=== PATIENT | female | born 1945 | race Two or more races ===

== ENCOUNTER 2017-12-20 10:03 | Outpatient (CLI) | payer OTHER ==
[~2017-12-20 10:03] MED LIST: COLAGENO; NABUMETONE500 MG PO; PERCOCET 5/3251 TAB PO; VIT B; [UNRECOGNIZED DRUG - OTHER]; [UNRECOGNIZED DRUG - OTHER]
== END 2017-12-20 10:07 | disposition home or self-care (01) ==
LOC: MAMO-SONO 10:03
DX: N60.12 Diffuse cystic mastopathy of left breast (principal)

== ENCOUNTER 2017-12-26 09:30 | Inpatient (IN) | payer OTHER ==
[~2017-12-26] VITALS: Ht 162.6 cm; Wt 77.1 kg
[2018-01-03] MEDS ORDERED: VITAMIN B-1250 MCG PO (14:56)
[2018-01-03] MEDS ORDERED: VITAMIN C100 MG PO (14:57)
[2018-01-03] MEDS ORDERED: CALCIUM 500 +1 EAC2 PO (14:58)
== END 2018-01-05 13:04 | DRG 470 ==
LOC: EDSTATUS 09:30 → O/R 01-02 06:00 → SURG 01-02 06:00 → O/R 01-02 09:30 → SURG 01-02 14:33
PROVIDERS: Orthopaedic Surgery
PROC: 0SRC0J9 Replacement of Right Knee Joint with Synthetic Substitute, Cemented, Open Approach (ICD-10-PCS; principal; 2018-01-02 09:45)
DX: M17.11 Unilateral primary osteoarthritis, right knee (principal); D62 Acute posthemorrhagic anemia; I10 Essential (primary) hypertension

== ENCOUNTER → 2018-04-02 | Outpatient (CLI) | payer OTHER ==
[~2018-04-02] MED LIST changes: +CALCIUM 500 +1 EAC2 PO; +VITAMIN B-1250 MCG PO; +VITAMIN C100 MG PO
== END | disposition home or self-care (01) ==
LOC: RAD 11:00
DX: M25.562 Pain in left knee (principal); M17.0 Bilateral primary osteoarthritis of knee; M25.561 Pain in right knee

== ENCOUNTER → 2018-07-11 09:34 | Outpatient (CLI) | payer OTHER | END | disposition home or self-care (01) | LOC: LAB 09:34 | DX: I10 Essential (primary) hypertension (principal); E11.9 Type 2 diabetes mellitus without complications; E03.8 Other specified hypothyroidism; E78.2 Mixed hyperlipidemia; M81.0 Age-related osteoporosis without current pathological fracture ==

== ENCOUNTER 2018-12-24 09:42 | Outpatient (CLI) | payer OTHER | END 2018-12-24 11:07 | disposition home or self-care (01) | LOC: MAMO-SONO 09:42 | DX: Z12.31 Encounter for screening mammogram for malignant neoplasm of breast (principal); Z87.898 Personal history of other specified conditions; N60.12 Diffuse cystic mastopathy of left breast; N60.11 Diffuse cystic mastopathy of right breast ==

== ENCOUNTER 2018-12-28 11:11 | Outpatient (CLI) | payer OTHER | END 2018-12-28 11:22 | disposition home or self-care (01) | LOC: SONOGRAMA 11:11 | DX: D24.1 Benign neoplasm of right breast (principal) ==

== ENCOUNTER 2019-02-21 09:37 | Outpatient (CLI) | payer OTHER | END 2019-02-21 12:01 | disposition home or self-care (01) | LOC: LAB 09:37 | DX: E11.9 Type 2 diabetes mellitus without complications (principal); E03.8 Other specified hypothyroidism; E78.2 Mixed hyperlipidemia; K92.1 Melena; D64.0 Hereditary sideroblastic anemia; M81.0 Age-related osteoporosis without current pathological fracture; I10 Essential (primary) hypertension ==

== ENCOUNTER 2019-02-22 09:44 | Outpatient (CLI) | payer OTHER | END 2019-02-22 09:50 | disposition home or self-care (01) | LOC: LAB 09:44 | DX: E03.8 Other specified hypothyroidism (principal); D64.0 Hereditary sideroblastic anemia; M81.0 Age-related osteoporosis without current pathological fracture; I10 Essential (primary) hypertension; E11.9 Type 2 diabetes mellitus without complications; E78.2 Mixed hyperlipidemia; K92.1 Melena ==

== ENCOUNTER 2019-06-14 10:29 | Outpatient (CLI) | payer OTHER | END 2019-06-14 10:35 | disposition home or self-care (01) | LOC: LAB 10:29 | DX: I10 Essential (primary) hypertension (principal); E11.9 Type 2 diabetes mellitus without complications; E03.8 Other specified hypothyroidism; E78.2 Mixed hyperlipidemia ==

== ENCOUNTER 2019-09-23 08:58 | Outpatient (CLI) | payer OTHER | END 2019-09-23 09:02 | disposition home or self-care (01) | LOC: LAB 08:58 | DX: E11.9 Type 2 diabetes mellitus without complications (principal); I10 Essential (primary) hypertension; E03.8 Other specified hypothyroidism; E78.2 Mixed hyperlipidemia ==

== ENCOUNTER 2019-10-16 08:48 | Outpatient (CLI) | payer OTHER | END 2019-10-16 08:51 | disposition home or self-care (01) | LOC: NUCLEAR 08:48 | DX: M25.461 Effusion, right knee (principal); M25.462 Effusion, left knee; M79.662 Pain in left lower leg; M79.661 Pain in right lower leg ==

== ENCOUNTER 2019-10-16 10:22 | Outpatient (CLI) | payer OTHER | END 2019-10-16 10:25 | disposition home or self-care (01) | LOC: RAD 10:22 | DX: M25.561 Pain in right knee (principal); M25.562 Pain in left knee ==

== ENCOUNTER 2019-10-21 11:13 | Inpatient (IN) | payer OTHER ==
[~2019-10-21] VITALS: Ht 121.9 cm; Wt 83.9 kg
[2019-11-20] MEDS ORDERED: PREVISION (07:38)
[2019-11-20] MEDS ORDERED: GRALISE600 MG PO (07:39)
[2019-11-20] MEDS ORDERED: SINGULAIR10 MG PO (07:46)
[2019-11-20] MEDS ORDERED: ATORVASTATIN CA10 MG PO (07:47)
[2019-11-20] MEDS ORDERED: CLARITIN10 M1 PO (07:47)
[2019-11-26] MEDS ORDERED: PRESERVISION A1 EAC1 PO (07:59)
== END 2019-11-28 14:12 | DRG 470 ==
LOC: SURG 11-26 05:34 → O/R 11-26 05:34 → SURG 11-26 07:15
PROVIDERS: ADMIT Orthopaedic Surgery
PROC: 0SRD0J9 Replacement of Left Knee Joint with Synthetic Substitute, Cemented, Open Approach (ICD-10-PCS; principal; 2019-11-26 10:00)
DX: M17.12 Unilateral primary osteoarthritis, left knee (principal); D62 Acute posthemorrhagic anemia; I10 Essential (primary) hypertension

== ENCOUNTER 2019-10-28 13:30 | Outpatient (CLI) | payer OTHER | END 2019-10-28 13:41 | disposition home or self-care (01) | LOC: NUCLEAR 13:30 | DX: J44.9 Chronic obstructive pulmonary disease, unspecified (principal); R94.31 Abnormal electrocardiogram [ECG] [EKG]; I10 Essential (primary) hypertension ==

== ENCOUNTER 2020-03-11 08:42 | Outpatient (CLI) | payer OTHER ==
[~2020-03-11 08:42] MED LIST changes: +ATORVASTATIN CA10 MG PO; +CLARITIN10 M1 PO; +GRALISE600 MG PO; +PRESERVISION A1 EAC1 PO; +PREVISION; +SINGULAIR10 MG PO
== END 2020-03-11 08:47 | disposition home or self-care (01) ==
LOC: RAD 08:42
DX: M25.561 Pain in right knee (principal); M25.562 Pain in left knee

== ENCOUNTER 2020-03-27 09:03 | Outpatient (CLI) | payer OTHER | END 2020-03-27 09:09 | disposition home or self-care (01) | LOC: MAMO-SONO 09:03 | DX: Z12.31 Encounter for screening mammogram for malignant neoplasm of breast (principal); Z87.898 Personal history of other specified conditions; N60.11 Diffuse cystic mastopathy of right breast; N60.12 Diffuse cystic mastopathy of left breast ==

== ENCOUNTER → 2020-03-30 08:19 | Outpatient (CLI) | payer OTHER | END | disposition home or self-care (01) | LOC: LAB 08:19 | DX: I10 Essential (primary) hypertension (principal); E11.9 Type 2 diabetes mellitus without complications; E03.8 Other specified hypothyroidism; E78.2 Mixed hyperlipidemia; Z12.11 Encounter for screening for malignant neoplasm of colon ==

== ENCOUNTER → 2020-03-31 09:23 | Outpatient (CLI) | payer OTHER | END | disposition home or self-care (01) | LOC: LAB 09:23 | DX: E11.9 Type 2 diabetes mellitus without complications (principal); I10 Essential (primary) hypertension; E03.8 Other specified hypothyroidism; E78.2 Mixed hyperlipidemia; Z12.11 Encounter for screening for malignant neoplasm of colon ==

== ENCOUNTER 2020-08-10 09:51 | Outpatient (CLI) | payer OTHER | END 2020-08-10 09:56 | disposition home or self-care (01) | LOC: LAB 09:51 | PROVIDERS: ATTEND Internal Medicine Cardiovascular Disease | DX: E03.8 Other specified hypothyroidism (principal); I10 Essential (primary) hypertension; E11.9 Type 2 diabetes mellitus without complications; E78.2 Mixed hyperlipidemia ==

== ENCOUNTER 2020-12-16 08:06 | Outpatient (CLI) | payer OTHER | END 2020-12-16 08:13 | disposition home or self-care (01) | LOC: RX STUDY 08:06 | PROVIDERS: ATTEND Internal Medicine Cardiovascular Disease | DX: K44.9 Diaphragmatic hernia without obstruction or gangrene (principal); R13.19 Other dysphagia ==

== ENCOUNTER 2020-12-17 08:34 | Outpatient (CLI) | payer OTHER | END 2020-12-17 08:39 | disposition home or self-care (01) | LOC: LAB 08:34 | PROVIDERS: ATTEND Internal Medicine Cardiovascular Disease | DX: E03.8 Other specified hypothyroidism (principal); I10 Essential (primary) hypertension; E11.9 Type 2 diabetes mellitus without complications; E78.2 Mixed hyperlipidemia; Z12.11 Encounter for screening for malignant neoplasm of colon; E55.9 Vitamin D deficiency, unspecified ==

== ENCOUNTER 2020-12-18 09:04 | Outpatient (CLI) | payer OTHER | END 2020-12-18 09:06 | disposition home or self-care (01) | LOC: LAB 09:04 | PROVIDERS: ATTEND Internal Medicine Cardiovascular Disease | DX: E03.8 Other specified hypothyroidism (principal); I10 Essential (primary) hypertension; E11.9 Type 2 diabetes mellitus without complications; E78.2 Mixed hyperlipidemia; Z12.11 Encounter for screening for malignant neoplasm of colon; E55.9 Vitamin D deficiency, unspecified ==

== ENCOUNTER 2021-03-24 08:19 | Outpatient (CLI) | payer OTHER | END 2021-03-24 08:31 | disposition home or self-care (01) | LOC: TOM 08:19 | PROVIDERS: ATTEND Internal Medicine Gastroenterology | DX: K56.600 Partial intestinal obstruction, unspecified as to cause (principal) ==

== ENCOUNTER 2021-04-06 08:50 | Outpatient (CLI) | payer OTHER | END 2021-04-06 09:07 | disposition home or self-care (01) | LOC: MAMO-SONO 08:50 | PROVIDERS: ATTEND Specialist | DX: Z12.31 Encounter for screening mammogram for malignant neoplasm of breast (principal); Z87.898 Personal history of other specified conditions; N60.11 Diffuse cystic mastopathy of right breast; N60.12 Diffuse cystic mastopathy of left breast ==

== ENCOUNTER → 2021-04-09 09:53 | Outpatient (CLI) | payer OTHER | END | disposition home or self-care (01) | LOC: LAB 09:53 | PROVIDERS: ATTEND Internal Medicine Cardiovascular Disease | DX: I10 Essential (primary) hypertension (principal); E11.9 Type 2 diabetes mellitus without complications; E03.9 Hypothyroidism, unspecified; E78.2 Mixed hyperlipidemia ==

== ENCOUNTER → 2021-06-14 13:39 | Outpatient (CLI) | payer OTHER | END | disposition home or self-care (01) | LOC: LAB 10:07 | PROVIDERS: ATTEND Internal Medicine Cardiovascular Disease | DX: D50.0 Iron deficiency anemia secondary to blood loss (chronic) (principal) ==

== ENCOUNTER 2021-07-26 09:45 | Outpatient (CLI) | payer OTHER | END 2021-07-26 09:46 | disposition home or self-care (01) | LOC: LAB 09:45 | PROVIDERS: ATTEND Internal Medicine Cardiovascular Disease | DX: I10 Essential (primary) hypertension (principal); E11.9 Type 2 diabetes mellitus without complications; E03.8 Other specified hypothyroidism; E78.2 Mixed hyperlipidemia ==

== ENCOUNTER → 2021-12-30 10:41 | Outpatient (CLI) | payer OTHER | END | disposition home or self-care (01) | LOC: LAB 10:41 | PROVIDERS: ATTEND Internal Medicine Cardiovascular Disease | DX: E03.9 Hypothyroidism, unspecified (principal); I10 Essential (primary) hypertension; E11.9 Type 2 diabetes mellitus without complications; E78.2 Mixed hyperlipidemia; Z12.11 Encounter for screening for malignant neoplasm of colon; E55.9 Vitamin D deficiency, unspecified; N39.0 Urinary tract infection, site not specified ==

== ENCOUNTER 2022-02-07 09:14 | Outpatient (CLI) | payer OTHER | END 2022-02-07 09:20 | disposition home or self-care (01) | LOC: RAD 09:14 | PROVIDERS: ATTEND Ophthalmology | DX: Z01.810 Encounter for preprocedural cardiovascular examination (principal) ==

== ENCOUNTER → 2022-03-01 | Outpatient (CLI) | payer OTHER | END | disposition home or self-care (01) | LOC: NUCLEAR 10:44 | PROVIDERS: ATTEND Obstetrics & Gynecology | DX: M81.0 Age-related osteoporosis without current pathological fracture (principal) ==

== ENCOUNTER 2022-03-14 09:58 | Outpatient (CLI) | payer OTHER | END 2022-03-14 10:15 | disposition home or self-care (01) | LOC: RAD 09:58 → NUCLEAR 03-17 09:00 | PROVIDERS: ATTEND Orthopaedic Surgery | DX: M25.561 Pain in right knee (principal); M25.562 Pain in left knee ==

== ENCOUNTER → 2022-03-17 | Outpatient (CLI) | payer OTHER | END | disposition home or self-care (01) | LOC: NUCLEAR 08:45 | PROVIDERS: ATTEND Orthopaedic Surgery | DX: M25.461 Effusion, right knee (principal); M25.462 Effusion, left knee; M25.561 Pain in right knee; M25.562 Pain in left knee ==

== ENCOUNTER 2022-03-18 08:30 | Outpatient (CLI) | payer OTHER | END 2022-03-18 08:31 | disposition home or self-care (01) | LOC: NUCLEAR 08:30 | PROVIDERS: ATTEND Orthopaedic Surgery | DX: M25.561 Pain in right knee (principal); M25.562 Pain in left knee ==

== ENCOUNTER → 2022-03-21 09:11 | Outpatient (CLI) | payer OTHER | END | disposition home or self-care (01) | LOC: LAB 09:11 | PROVIDERS: ATTEND Internal Medicine Cardiovascular Disease | DX: E03.9 Hypothyroidism, unspecified (principal); I10 Essential (primary) hypertension; E11.9 Type 2 diabetes mellitus without complications; E78.2 Mixed hyperlipidemia ==

== ENCOUNTER → 2022-05-05 10:02 | Outpatient (CLI) | payer OTHER | END | disposition home or self-care (01) | LOC: LAB 10:02 | PROVIDERS: ATTEND Internal Medicine Cardiovascular Disease | DX: Z20.822 Contact with and (suspected) exposure to COVID-19 (principal) ==

== ENCOUNTER 2022-05-17 09:12 | Outpatient (CLI) | payer OTHER | END 2022-05-17 09:13 | disposition home or self-care (01) | LOC: LAB 09:12 | PROVIDERS: ATTEND Internal Medicine Cardiovascular Disease | DX: Z20.822 Contact with and (suspected) exposure to COVID-19 (principal) ==

== ENCOUNTER 2022-05-25 09:15 | Outpatient (CLI) | payer OTHER | END 2022-05-25 09:26 | disposition home or self-care (01) | LOC: MAMO-SONO 09:15 | PROVIDERS: ATTEND Specialist | DX: D24.2 Benign neoplasm of left breast (principal) ==

== ENCOUNTER 2022-06-22 12:23 | Outpatient (CLI) | payer OTHER | END 2022-06-22 12:24 | disposition home or self-care (01) | LOC: LAB 12:23 | PROVIDERS: ATTEND Radiology Body Imaging | DX: Z20.828 Contact with and (suspected) exposure to other viral communicable diseases (principal); Z20.822 Contact with and (suspected) exposure to COVID-19; Z11.52 Encounter for screening for COVID-19 ==

== ENCOUNTER 2022-08-09 08:42 | Outpatient (CLI) | payer OTHER | END 2022-08-09 08:43 | disposition home or self-care (01) | LOC: LAB 08:42 | PROVIDERS: ATTEND Internal Medicine Cardiovascular Disease | DX: I10 Essential (primary) hypertension (principal); E11.9 Type 2 diabetes mellitus without complications; E03.9 Hypothyroidism, unspecified; E78.2 Mixed hyperlipidemia ==

== ENCOUNTER 2022-12-12 10:15 | Outpatient (CLI) | payer OTHER | END 2022-12-12 10:22 | disposition home or self-care (01) | LOC: LAB 10:15 | PROVIDERS: ATTEND Internal Medicine Cardiovascular Disease | DX: I10 Essential (primary) hypertension (principal); E11.9 Type 2 diabetes mellitus without complications; E03.9 Hypothyroidism, unspecified; E78.2 Mixed hyperlipidemia; Z12.11 Encounter for screening for malignant neoplasm of colon; E55.9 Vitamin D deficiency, unspecified ==

== ENCOUNTER → 2022-12-15 10:30 | Outpatient (CLI) | payer OTHER | END | disposition home or self-care (01) | LOC: LAB 10:30 | PROVIDERS: ATTEND Internal Medicine Cardiovascular Disease | DX: Z12.11 Encounter for screening for malignant neoplasm of colon (principal) ==

== ENCOUNTER 2022-12-29 09:29 | Outpatient (CLI) | payer OTHER | END 2022-12-29 09:33 | disposition home or self-care (01) | LOC: RAD 09:29 | DX: Z01.810 Encounter for preprocedural cardiovascular examination (principal) ==

== ENCOUNTER 2023-02-27 09:21 | Outpatient (CLI) | payer OTHER | END 2023-02-27 09:34 | disposition home or self-care (01) | LOC: LAB 09:21 | DX: Z01.810 Encounter for preprocedural cardiovascular examination (principal); H18.231 Secondary corneal edema, right eye; Z20.828 Contact with and (suspected) exposure to other viral communicable diseases; Z79.01 Long term (current) use of anticoagulants ==

== ENCOUNTER 2023-05-30 08:32 | Outpatient (CLI) | payer OTHER | END 2023-05-30 08:38 | disposition home or self-care (01) | LOC: MAMO-SONO 08:32 | PROVIDERS: ATTEND Specialist | DX: Z12.31 Encounter for screening mammogram for malignant neoplasm of breast (principal); N60.11 Diffuse cystic mastopathy of right breast; N60.12 Diffuse cystic mastopathy of left breast ==

== ENCOUNTER 2023-06-12 09:01 | Outpatient (CLI) | payer OTHER | END 2023-06-12 09:04 | disposition home or self-care (01) | LOC: LAB 09:01 | PROVIDERS: ATTEND Internal Medicine Cardiovascular Disease | DX: I10 Essential (primary) hypertension (principal); E78.2 Mixed hyperlipidemia; E03.9 Hypothyroidism, unspecified ==

== ENCOUNTER 2023-08-21 10:45 | Outpatient (CLI) | payer OTHER ==
[2023-08-21 11:23] LABS: HEMATOCRIT 38.5 % (36.0-45.00); HEMOGLOBIN 13.3 g/dL (12.0-15.00); MEAN CELL VOLUME 83.1 fL (80.00-100.00); MEAN CORPUSCULAR HEMOGLOBIN 28.8 pg (27.00-32.0); MEAN CORPUSCULAR HGB CONC 34.6 g/dl (32.0-36.0); PLATELET COUNT 192 K/uL (150-450); RED BLOOD COUNT 4.63 M/uL (4.00-6.00); RED CELL DISTRIBUTION WIDTH 14.1 % (11.5-14.5)
[2023-08-21 13:13] LABS: MYCOPLASMA PNEUMONIAE IGM NON REACTIVE (NO REACTIVE)
== END 2023-08-21 10:50 | disposition home or self-care (01) ==
LOC: LAB 10:45
PROVIDERS: ATTEND Internal Medicine Cardiovascular Disease
DX: J11.1 Influenza due to unidentified influenza virus with other respiratory manifestations (principal); A49.3 Mycoplasma infection, unspecified site; Z20.822 Contact with and (suspected) exposure to COVID-19

== ENCOUNTER → 2023-10-09 09:23 | Outpatient (CLI) | payer OTHER ==
[2023-10-09 10:32] LABS: PH,URINE 7.5 (5.0-8.0); URINE APPEARANCE Clear; URINE BILIRRUBIN Negative (NEGATIVE); URINE BLOOD Negative; URINE COLOR Yellow; URINE GLUCOSE Negative (NEGATIVE); URINE LEUKOCYTE Negative; URINE NITRATE Negative; URINE PROTEIN Negative (NEGATIVE); URINE UROBILINOGEN 0.2 E.U./dl
[2023-10-09 10:37] LABS: URINE BACTERIA 235.5 uL (0.0-1933); URINE EPITHELIAL CELLS 24.1 uL (0.0-38.8); URINE RBC 6.7 uL (0.0-20.8); URINE WBC 5.2 uL (0.0-23.2)
[2023-10-09 10:40] LABS: HEMATOCRIT 40.1 % (36.0-45.00); HEMOGLOBIN 13.5 g/dL (12.0-15.00); MEAN CELL VOLUME 85.2 fL (80.00-100.00); MEAN CORPUSCULAR HEMOGLOBIN 28.7 pg (27.00-32.0); MEAN CORPUSCULAR HGB CONC 33.7 g/dl (32.0-36.0); PLATELET COUNT 189 K/uL (150-450); RED BLOOD COUNT 4.71 M/uL (4.00-6.00); RED CELL DISTRIBUTION WIDTH 13.8 % (11.5-14.5)
[2023-10-09 11:37] LABS: CHOL HDL RATIO 3.6 (0-5.0); CREATININE SERUM 0.63 mg/dL (0.55-1.02); GFR 91.63; POTASSIUM 4.25 mEq/L (3.5-5.1); T4 TOTAL 9.56 UG/DL (4.8-13.9); TSH 1.99 uIU/mL (0.358-3.74)
== END | disposition home or self-care (01) ==
LOC: LAB 09:23
PROVIDERS: ATTEND Internal Medicine Cardiovascular Disease
DX: I10 Essential (primary) hypertension (principal); E11.9 Type 2 diabetes mellitus without complications; E03.9 Hypothyroidism, unspecified; E78.2 Mixed hyperlipidemia

== ENCOUNTER → 2024-02-26 09:57 | Outpatient (CLI) | payer OTHER ==
[2024-02-26 11:20] LABS: HEMATOCRIT 39.6 % (36.0-45.00); HEMOGLOBIN 13.4 g/dL (12.0-15.00); MEAN CELL VOLUME 84.6 fL (80.00-100.00); MEAN CORPUSCULAR HEMOGLOBIN 28.6 pg (27.00-32.0); MEAN CORPUSCULAR HGB CONC 33.8 g/dl (32.0-36.0); PLATELET COUNT 191 K/uL (150-450); RED BLOOD COUNT 4.68 M/uL (4.00-6.00); RED CELL DISTRIBUTION WIDTH 13.8 % (11.5-14.5)
[2024-02-26 11:42] LABS: PH,URINE 6.5 (5.0-8.0); URINE APPEARANCE Clear; URINE BILIRRUBIN Negative (NEGATIVE); URINE BLOOD Negative; URINE COLOR Yellow; URINE GLUCOSE Negative (NEGATIVE); URINE LEUKOCYTE Negative; URINE NITRATE Negative; URINE PROTEIN Negative (NEGATIVE); URINE UROBILINOGEN 0.2 E.U./dl
[2024-02-26 11:46] LABS: URINE BACTERIA 555.5 uL (0.0-1933); URINE EPITHELIAL CELLS 28.1 uL (0.0-38.8); URINE RBC 7.1 uL (0.0-20.8); URINE WBC 8.1 uL (0.0-23.2)
[2024-02-26 12:05] LABS: ALBUMIN 3.4 gm/dL (3.4-5.0); BILIRUBIN TOTAL 0.36 mg/dL (0.3-1.2); CALCIUM 8.8 mg/dL (8.5-10.1); CREATININE SERUM 0.67 mg/dL (0.55-1.02); GFR 85.35; GLOBULINA 3.8 G/DL (2.4-3.5); POTASSIUM 4.24 mEq/L (3.5-5.1); T4 TOTAL 9.43 UG/DL (4.8-13.9); TOTAL PROTEIN 7.2 gm/dL (6.4-8.2); TSH 1.44 uIU/mL (0.358-3.74)
[2024-02-26 14:06] LABS: T3 TOTAL 1.09 ng/ml (0.846-2.02); VITAMIN D3 25 HYDROXY 60.07 ng/ml (30-120)
== END | disposition home or self-care (01) ==
LOC: LAB 09:57
PROVIDERS: ATTEND Internal Medicine Cardiovascular Disease
DX: I10 Essential (primary) hypertension (principal); E11.9 Type 2 diabetes mellitus without complications; E03.9 Hypothyroidism, unspecified; E78.2 Mixed hyperlipidemia; Z12.11 Encounter for screening for malignant neoplasm of colon; E55.9 Vitamin D deficiency, unspecified

== ENCOUNTER → 2024-02-27 08:29 | Outpatient (CLI) | payer OTHER ==
[2024-02-27 12:12] LABS: ob NEGATIVE (NEGATIVE)
== END | disposition home or self-care (01) ==
LOC: LAB 08:29
PROVIDERS: ATTEND Internal Medicine Cardiovascular Disease
DX: E11.9 Type 2 diabetes mellitus without complications (principal); I10 Essential (primary) hypertension; E03.9 Hypothyroidism, unspecified; E78.2 Mixed hyperlipidemia; E55.9 Vitamin D deficiency, unspecified; Z12.11 Encounter for screening for malignant neoplasm of colon

== ENCOUNTER 2024-05-13 09:50 | Outpatient (CLI) | payer OTHER ==
[2024-05-13 10:39] LABS: HEMATOCRIT 38.6 % (36.0-45.00); HEMOGLOBIN 13.3 g/dL (12.0-15.00); MEAN CELL VOLUME 83.2 fL (80.00-100.00); MEAN CORPUSCULAR HEMOGLOBIN 28.6 pg (27.00-32.0); MEAN CORPUSCULAR HGB CONC 34.4 g/dl (32.0-36.0); PLATELET COUNT 241 K/uL (150-450); RED BLOOD COUNT 4.64 M/uL (4.00-6.00); RED CELL DISTRIBUTION WIDTH 14.3 % (11.5-14.5)
[2024-05-13 11:25] LABS: PH,URINE 5.5 (5.0-8.0); URINE APPEARANCE Clear; URINE BILIRRUBIN Negative (NEGATIVE); URINE BLOOD Negative; URINE COLOR Yellow; URINE GLUCOSE Negative (NEGATIVE); URINE LEUKOCYTE Trace; URINE NITRATE Negative; URINE PROTEIN Negative (NEGATIVE); URINE UROBILINOGEN 0.2 E.U./dl
[2024-05-13 11:27] LABS: CALCIUM 8.6 mg/dL (8.5-10.1); CHOL HDL RATIO 4.7 (0-5.0); CREATININE SERUM 0.6 mg/dL (0.55-1.02); GFR 96.94; POTASSIUM 4.12 mEq/L (3.5-5.1); T4 TOTAL 10.16 UG/DL (4.8-13.9); TSH 2.18 uIU/mL (0.358-3.74)
[2024-05-13 11:29] LABS: URINE BACTERIA 1874.7 uL (0.0-1933); URINE EPITHELIAL CELLS 61.1 uL (0.0-38.8); URINE RBC 3.5 uL (0.0-20.8); URINE WBC 18.2 uL (0.0-23.2)
== END 2024-05-13 09:51 | disposition home or self-care (01) ==
LOC: LAB 09:50
PROVIDERS: ATTEND Internal Medicine Cardiovascular Disease
DX: E11.9 Type 2 diabetes mellitus without complications (principal); I10 Essential (primary) hypertension; E03.9 Hypothyroidism, unspecified; E78.2 Mixed hyperlipidemia

== ENCOUNTER 2024-06-17 08:45 | Outpatient (CLI) | payer OTHER | END 2024-06-17 08:58 | disposition home or self-care (01) | LOC: MAMO-SONO 08:45 | PROVIDERS: ATTEND Specialist | DX: D24.2 Benign neoplasm of left breast (principal); N60.11 Diffuse cystic mastopathy of right breast; Z12.31 Encounter for screening mammogram for malignant neoplasm of breast ==

== ENCOUNTER 2024-06-18 07:05 | Outpatient (CLI) | payer OTHER | END 2024-06-18 07:06 | disposition home or self-care (01) | LOC: NUCLEAR 07:05 | PROVIDERS: ATTEND Internal Medicine | DX: R07.9 Chest pain, unspecified (principal); I20.9 Angina pectoris, unspecified | CPT/HCPCS: 78452; 93017; A9500 ==

== ENCOUNTER 2024-07-31 12:26 | Outpatient (CLI) | payer OTHER | END 2024-07-31 12:28 | disposition home or self-care (01) | LOC: NUCLEAR 12:26 | PROVIDERS: ATTEND Obstetrics & Gynecology | DX: M81.0 Age-related osteoporosis without current pathological fracture (principal) ==

== ENCOUNTER 2024-08-13 09:02 | Outpatient (CLI) | payer OTHER ==
[2024-08-13 10:09] LABS: URINE APPEARANCE Clear; URINE BILIRRUBIN Negative (NEGATIVE); URINE BLOOD Negative; URINE COLOR Yellow; URINE GLUCOSE Negative (NEGATIVE); URINE KETONE Negative (NEGATIVE); URINE LEUKOCYTE Trace; URINE NITRATE Negative; URINE PROTEIN Negative (NEGATIVE); URINE UROBILINOGEN 0.2 E.U./dl
[2024-08-13 10:10] LABS: HEMATOCRIT 36.6 % (36.0-45.00); HEMOGLOBIN 12.3 g/dL (12.0-15.00); MEAN CELL VOLUME 82.3 fL (80.00-100.00); MEAN CORPUSCULAR HEMOGLOBIN 27.6 pg (27.00-32.0); MEAN CORPUSCULAR HGB CONC 33.6 g/dl (32.0-36.0); PLATELET COUNT 177 K/uL (150-450); RED BLOOD COUNT 4.45 M/uL (4.00-6.00); RED CELL DISTRIBUTION WIDTH 13.9 % (11.5-14.5)
[2024-08-13 10:12] LABS: URINE BACTERIA 1786.4 uL (0.0-1933); URINE EPITHELIAL CELLS 66.6 uL (0.0-38.8); URINE RBC 3.8 uL (0.0-20.8); URINE WBC 35.2 uL (0.0-23.2)
[2024-08-13 10:26] LABS: URINE CAST 0.61 uL (0.0-1.40)
[2024-08-13 11:21] LABS: CALCIUM 8.7 mg/dL (8.5-10.1); CHOL HDL RATIO 3.1 (0-5.0); CREATININE SERUM 0.66 mg/dL (0.55-1.02); GFR 86.61; POTASSIUM 4.03 mEq/L (3.5-5.1); T4 TOTAL 9.57 UG/DL (4.8-13.9); TSH 1.75 uIU/mL (0.358-3.74)
== END 2024-08-13 09:09 | disposition home or self-care (01) ==
LOC: LAB 09:02
PROVIDERS: ATTEND Internal Medicine Cardiovascular Disease
DX: E03.9 Hypothyroidism, unspecified (principal); E78.2 Mixed hyperlipidemia; I10 Essential (primary) hypertension; E11.9 Type 2 diabetes mellitus without complications

== ENCOUNTER → 2024-12-06 09:18 | Outpatient (CLI) | payer OTHER ==
[2024-12-06 10:23] LABS: HEMATOCRIT 37.4 % (36.0-45.00); HEMOGLOBIN 12.5 g/dL (12.0-15.00); MEAN CORPUSCULAR HEMOGLOBIN 26.7 pg (27.00-32.0); MEAN CORPUSCULAR HGB CONC 33.3 g/dl (32.0-36.0); PLATELET COUNT 201 K/uL (150-450); RED BLOOD COUNT 4.68 M/uL (4.00-6.00); RED CELL DISTRIBUTION WIDTH 16.6 % (11.5-14.5)
[2024-12-06 10:34] LABS: URINE APPEARANCE Clear; URINE BILIRRUBIN Negative (NEGATIVE); URINE BLOOD Negative; URINE COLOR Yellow; URINE GLUCOSE Negative (NEGATIVE); URINE KETONE Negative (NEGATIVE); URINE LEUKOCYTE Trace; URINE NITRATE Negative; URINE PROTEIN Negative (NEGATIVE); URINE UROBILINOGEN 0.2 E.U./dl
[2024-12-06 10:38] LABS: URINE BACTERIA 848.2 uL (0.0-1933); URINE EPITHELIAL CELLS 38.4 uL (0.0-38.8); URINE RBC 5.5 uL (0.0-20.8); URINE WBC 12.6 uL (0.0-23.2)
[2024-12-06 10:43] LABS: URINE CAST 0.14 uL (0.0-1.40)
[2024-12-06 11:21] LABS: ALBUMIN 3.4 gm/dL (3.4-5.0); BILIRUBIN TOTAL 0.39 mg/dL (0.3-1.2); CALCIUM 8.7 mg/dL (8.5-10.1); CHOL HDL RATIO 2.9 (0-5.0); CREATININE SERUM 0.59 mg/dL (0.55-1.02); GFR 98.58; GLOBULINA 3.7 G/DL (2.4-3.5); POTASSIUM 4.22 mEq/L (3.5-5.1); TOTAL PROTEIN 7.1 gm/dL (6.4-8.2)
[2024-12-06 11:46] LABS: T4 TOTAL 9.72 UG/DL (4.8-13.9); TSH 1.5 uIU/mL (0.358-3.74)
[2024-12-06 12:22] LABS: T3 TOTAL 1.37 ng/ml (0.846-2.02); VITAMIN D3 25 HYDROXY 63.07 ng/ml (30-120)
== END | disposition home or self-care (01) ==
LOC: LAB 09:18
PROVIDERS: ATTEND Internal Medicine Cardiovascular Disease
DX: E11.9 Type 2 diabetes mellitus without complications (principal); E03.9 Hypothyroidism, unspecified; I10 Essential (primary) hypertension; E78.2 Mixed hyperlipidemia; D64.0 Hereditary sideroblastic anemia; Z12.11 Encounter for screening for malignant neoplasm of colon; E55.9 Vitamin D deficiency, unspecified; M81.0 Age-related osteoporosis without current pathological fracture

== ENCOUNTER 2024-12-07 12:42 | Outpatient (CLI) | payer OTHER ==
[2024-12-07 12:58] LABS: ob NEGATIVE (NEGATIVE)
== END 2024-12-07 12:49 | disposition home or self-care (01) ==
LOC: LAB 12:42
PROVIDERS: ATTEND Internal Medicine Cardiovascular Disease
DX: E11.9 Type 2 diabetes mellitus without complications (principal); I10 Essential (primary) hypertension; E03.9 Hypothyroidism, unspecified; E78.2 Mixed hyperlipidemia; D64.0 Hereditary sideroblastic anemia; Z12.11 Encounter for screening for malignant neoplasm of colon; E55.9 Vitamin D deficiency, unspecified; M81.0 Age-related osteoporosis without current pathological fracture

== ENCOUNTER 2024-12-27 07:45 | Inpatient (IN) | payer OTHER ==
[~2024-12-27] VITALS: Ht 162.6 cm; Wt 81.2 kg
--- NOTE | 2024-12-27 08:50 | NUR ---
SE RECIBE PTE DEL AREA DE TRIAGE EN [place] CON DIFICULTAD RESPIRATORIA SE UBICA EN EL AREA DE CRITICO EN EL CUBICULO #2 EN CAMA SE CONECTA A MONITOR CARDIACO Y OXYMETRIA DE PULSO PTE ALERTA Y ORIENTADA POR 3 SE CONECTA HEATHER CANULA A 3 LITRO SE ORIENTA PTE SOBRE EL TRATAMEINTO ORDENADO POR EL DR WIGGINS SE REALIZAN MUESTRAS DE LABORATORIO Y SE ADMINISTRAN MEDICAMENTOS,SE INSERTA GARCIA BAJO MEDIDAS ASEPTICAS, PTE SE MANTIENE EN OBSERVACION Y BAJO TRATAMIENTO.
[2024-12-27 09:18] LABS: ABG PH 7.424 (7.35-7.45); ABG PO2 76.2 mmHg (80-100); ABG pCO2 35.7 mmHg (35-45); BICARBONATE 22.8 mmol/l (23-25); SaO2 95.4 %; Tco2 23.9 mmol/l
[2024-12-27 09:32] LABS: allen test SATISFACTORY; o2 21 %; puncture site RADIAL RIGHT
[2024-12-27] MEDS ORDERED: CEFTRIAXONE SODIUM 1,000 MG VIAL IV ONE (09:45)
[2024-12-27 09:50] LABS: HEMATOCRIT 33.4 % (36.0-45.00); HEMOGLOBIN 11.8 g/dL (12.0-15.00); MEAN CELL VOLUME 78.1 fL (80.00-100.00); MEAN CORPUSCULAR HEMOGLOBIN 27.6 pg (27.00-32.0); MEAN CORPUSCULAR HGB CONC 35.4 g/dl (32.0-36.0); PLATELET COUNT 194 K/uL (150-450); RED BLOOD COUNT 4.28 M/uL (4.00-6.00); RED CELL DISTRIBUTION WIDTH 16.6 % (11.5-14.5)
[2024-12-27] MEDS ORDERED: CEFTRIAXONE SODIUM 1,000 MG VIAL ONE (10:33)
[2024-12-27 10:52] LABS: CALCIUM 8.5 mg/dL (8.5-10.1); CREATININE SERUM 0.78 mg/dL (0.55-1.02); GFR 71.43; POTASSIUM 3.88 mEq/L (3.5-5.1)
[2024-12-27 10:53] LABS: CKMB 3.8 NG/ML (0.5-3.6)
[2024-12-27] MEDS ORDERED: NITROGLYCERIN IN 5 % DEXTROSE 50 MG/250 ML BOTTLE IV ONE (10:55)
[2024-12-27 13:07] LABS: PH,URINE 5.5 (5.0-8.0); URINE APPEARANCE Clear; URINE BILIRRUBIN Negative (NEGATIVE); URINE BLOOD Large; URINE COLOR Yellow; URINE GLUCOSE Negative (NEGATIVE); URINE KETONE 15 (NEGATIVE); URINE LEUKOCYTE Negative; URINE NITRATE Negative; URINE PROTEIN 30 (NEGATIVE); URINE UROBILINOGEN 0.2 E.U./dl
[2024-12-27 13:08] LABS: URINE CAST 2.94 uL (0.0-1.40); URINE EPITHELIAL CELLS 22.7 uL (0.0-38.8); URINE RBC 47.5 uL (0.0-20.8); URINE WBC 2.8 uL (0.0-23.2)
[2024-12-27] MEDS ORDERED: ACETAMINOPHEN 500 MG GEL..CAP PO ONE ×2 (14:36→14:45)
--- NOTE | 2024-12-27 15:12 | NUR ---
FEMINA ALERTA Y ORIENTADA X3 EN UNIDAD DE CRITICO #2. CONECTADA A MONITOR CARDIACO Y OXIMETRIA DE PULSO. CANULA NASAL A 3 LT/MIN. PACIENTE CON CANALIZACION PATENTE RIANA DE EDEMA Y ERITEMA. SE OBSERVA DRIP DE TRIDIL @ 1 ML/HR. SONDA URINARIA COLOCADA A GRAVEDAD. PENDIENTE CONSULTA CON DR SASHA DUGGAN.
[2024-12-27] MEDS ORDERED: ATORVASTATIN CALCIUM 20 MG TABLET PO SCH (17:54)
[2024-12-27] MEDS ORDERED: 0.9 % SODIUM CHLORIDE 1,000 ML IV SCH (18:00)
[2024-12-27] MEDS ORDERED: NITROGLYCERIN IN 5 % DEXTROSE 250 ML IV SCH ×2 (18:00→18:30)
[2024-12-27] MEDS ORDERED: ENOXAPARIN SODIUM 40 MG/0.4 ML SYRINGE SUBCUTANEO SCH (18:11)
[2024-12-27] MEDS ORDERED: ENOXAPARIN SODIUM 40 MG/0.4 ML SYRINGE SUBCUTANEO ONE (18:41)
[2024-12-27] MEDS ORDERED: ACETAMINOPHEN 500 MG GEL..CAP PO PRN (18:45)
[2024-12-27 19:17] LABS: INR 1.03; PARTIAL THROMBOPLASTIN TIME 29.4 SECONDS (22.0-34.0); PROTHROMBIN TIME 11.2 SECONDS (9.0-11.5)
[2024-12-27 19:43] VITALS: BP 132/54; O2SAT 98
[2024-12-27 20:54] VITALS: BP 131/66
[2024-12-27] MEDS ORDERED: FAMOTIDINE/PF 20 MG in 0.9 % SODIUM CHLORIDE 8 ML IV PUSH SCH (21:00)
[2024-12-28 02:28] VITALS: BP 160/78
[2024-12-28 08:32] VITALS: BP 137/63
[2024-12-28] MEDS ORDERED: TICAGRELOR 90 MG TABLET PO STA (11:28)
[2024-12-28] MEDS ORDERED: BENZONATATE 100 MG CAPSULE PO PRN (11:45)
[2024-12-28] MEDS ORDERED: SIMVASTATIN 40 MG TABLET PO SCH (17:00)
[2024-12-28] MEDS ORDERED: TICAGRELOR 90 MG TABLET PO SCH (17:00)
[2024-12-28] MEDS ORDERED: SIMVASTATIN 20 MG TABLET PO SCH (17:00)
[2024-12-28 17:34] VITALS: BP 153/74; O2SAT 98
[2024-12-28] MEDS ORDERED: AZITHROMYCIN 500 MG VIAL IV SCH (21:05)
[2024-12-28] MEDS ORDERED: CEFTRIAXONE SODIUM 2,000 MG in DEXTROSE 5 % IN WATER 100 ML IV SCH (21:05)
[2024-12-28] MEDS ORDERED: LEVALBUTEROL HCL 1.25 MG/3 ML SOLUTION IH SCH (21:05)
[2024-12-28] MEDS ORDERED: GUAIFEN/DEXTROMETHORPHAN/PE 10 ML BLIST.PACK PO SCH (21:06)
[2024-12-28] MEDS ORDERED: IPRATROPIUM BROMIDE 0.5 MG/2.5 ML AMPUL.NEB IH SCH (21:06)
[2024-12-28] MEDS ORDERED: LEVALBUTEROL HCL 0.63 MG/3 ML SOLUTION IH ONE (21:19)
[2024-12-28 21:34] LABS: ABG PH 7.498 (7.35-7.45); ABG PO2 64.1 mmHg (80-100); ABG pCO2 29.7 mmHg (35-45); BASE EXCESS 0.5 mmol/l; BICARBONATE 22.6 mmol/l (23-25); SaO2 94.2 %; Tco2 23.5 mmol/l
[2024-12-28 21:51] LABS: allen test SATISFACTORY; o2 21 %; puncture site RADIAL LEFT
[2024-12-29] MEDS ORDERED: METHYLPREDNISOLONE SOD SUCC 40 MG VIAL IV SCH ×2 (01:00→17:00)
[2024-12-29 03:34] VITALS: BP 176/74
[2024-12-29 05:31] VITALS: O2SAT 98
[2024-12-29] MEDS ORDERED: ASPIRIN 81 MG TABLET.EC PO SCH (09:00)
[2024-12-29 09:06] VITALS: BP 144/73
[2024-12-29 18:47] VITALS: BP 137/69; O2SAT 95
[2024-12-30 03:10] VITALS: BP 134/84
[2024-12-30] MEDS ORDERED: METHYLPREDNISOLONE SOD SUCC 40 MG VIAL IV SCH (05:00)
[2024-12-30] MEDS ORDERED: AZITHROMYCIN 500 MG VIAL IV ONE (08:54)
[2024-12-30] MEDS ORDERED: CEFTRIAXONE SODIUM 2,000 MG VIAL ONE (08:54)
[2024-12-30] MEDS ORDERED: FAMOTIDINE/PF 20 MG/2 ML VIAL ONE (08:54)
[2024-12-30 08:58] VITALS: BP 144/76; O2SAT 98
[2024-12-30 16:49] VITALS: BP 121/85
[2024-12-30] MEDS ORDERED: BENZONATATE 100 MG CAPSULE PO SCH (17:00)
[2024-12-31 00:46] VITALS: BP 149/73
[2024-12-31] MEDS ORDERED: FAMOTIDINE/PF 20 MG/2 ML VIAL ONE ×2 (08:41→19:26)
[2024-12-31] MEDS ORDERED: AZITHROMYCIN 500 MG VIAL IV ONE (08:42)
[2024-12-31] MEDS ORDERED: CEFTRIAXONE SODIUM 2,000 MG VIAL ONE (08:42)
[2024-12-31 08:56] VITALS: BP 157/70; O2SAT 96
[2024-12-31] MEDS ORDERED: ISOSORBIDE MONONITRATE 30 MG TABLET PO SCH (09:00)
[2024-12-31] MEDS ORDERED: METHYLPREDNISOLONE SOD SUCC 40 MG VIAL IV SCH (09:00)
[2024-12-31 14:59] LABS: HEMATOCRIT 35.4 % (36.0-45.00); HEMOGLOBIN 11.8 g/dL (12.0-15.00); MEAN CELL VOLUME 79.7 fL (80.00-100.00); MEAN CORPUSCULAR HEMOGLOBIN 26.5 pg (27.00-32.0); MEAN CORPUSCULAR HGB CONC 33.2 g/dl (32.0-36.0); PLATELET COUNT 313 K/uL (150-450); RED BLOOD COUNT 4.44 M/uL (4.00-6.00); RED CELL DISTRIBUTION WIDTH 16.8 % (11.5-14.5)
[2024-12-31 15:40] LABS: ALBUMIN 2.5 gm/dL (3.4-5.0); BILIRUBIN TOTAL 0.31 mg/dL (0.3-1.2); CALCIUM 8.5 mg/dL (8.5-10.1); CREATININE SERUM 0.77 mg/dL (0.55-1.02); GFR 72.5; GLOBULINA 3.9 G/DL (2.4-3.5); MAGNESIUM 1.9 mg/dL (1.8-2.4); PHOSPHOROUS 2.8 mg/dL (2.5-4.9); POTASSIUM 3.81 mEq/L (3.5-5.1); TOTAL PROTEIN 6.4 gm/dL (6.4-8.2)
[2024-12-31 18:01] VITALS: BP 140/70
[2024-12-31] MEDS ORDERED: GABAPENTIN 600 MG TABLET PO SCH (21:00)
[2025-01-01 01:32] VITALS: BP 160/76
[2025-01-01] MEDS ORDERED: AZITHROMYCIN 500 MG VIAL IV ONE (08:42)
[2025-01-01] MEDS ORDERED: CLOPIDOGREL BISULFATE 75 MG TABLET PO SCH (09:00)
[2025-01-01 09:14] VITALS: BP 132/65
[2025-01-01 17:25] VITALS: BP 150/78; O2SAT 98
[2025-01-01] MEDS ORDERED: CLOPIDOGREL BIS75 MG PO (17:28)
[2025-01-01] MEDS ORDERED: ISOSORBIDE MONO30 MG PO (17:29)
[2025-01-01] MEDS ORDERED: SIMVASTATIN40 MG PO (17:30)
[2025-01-01] MEDS ORDERED: ST. JOSEPH ASPI81 M2 PO (17:31)
[2025-01-01] MEDS ORDERED: FAMOtidine 20 MG TABLET PO SCH (21:00)
== END 2025-01-01 18:59 | disposition home or self-care (01) | DRG 281 ==
LOC: ER 07:48 → MEDJ 18:12
PROVIDERS: Emergency Medicine; General Practice; Internal Medicine; ADMIT Internal Medicine; ATTEND Internal Medicine
PROC: B24BZZZ Ultrasonography of Heart with Aorta (ICD-10-PCS; principal; 2024-12-27)
PROC: 4A12X4Z Monitoring of Cardiac Electrical Activity, External Approach (ICD-10-PCS; 2024-12-28)
PROC: BW40ZZZ Ultrasonography of Abdomen (ICD-10-PCS; 2024-12-31)
DX: I21.4 Non-ST elevation (NSTEMI) myocardial infarction (principal); I50.30 Unspecified diastolic (congestive) heart failure; J44.1 Chronic obstructive pulmonary disease with (acute) exacerbation; J45.901 Unspecified asthma with (acute) exacerbation; I11.0 Hypertensive heart disease with heart failure; I25.10 Atherosclerotic heart disease of native coronary artery without angina pectoris

== ENCOUNTER 2025-02-11 09:28 | Outpatient (CLI) | payer OTHER ==
[~2025-02-11 09:28] MED LIST changes: +CLOPIDOGREL BIS75 MG PO; +ISOSORBIDE MONO30 MG PO; +SIMVASTATIN40 MG PO; +ST. JOSEPH ASPI81 M2 PO
[2025-02-11 10:16] LABS: HEMATOCRIT 39.2 % (36.0-45.00); MEAN CELL VOLUME 85.1 fL (80.00-100.00); MEAN CORPUSCULAR HEMOGLOBIN 28.3 pg (27.00-32.0); MEAN CORPUSCULAR HGB CONC 33.2 g/dl (32.0-36.0); PLATELET COUNT 176 K/uL (150-450)
[2025-02-11 11:01] LABS: URINE BILIRRUBIN SMALL (NEGATIVE); URINE BLOOD NEGATIVE; URINE GLUCOSE NEGATIVE (NEGATIVE); URINE KETONE NEGATIVE (NEGATIVE); URINE LEUKOCYTE NEGATIVE; URINE NITRATE NEGATIVE; URINE PROTEIN NEGATIVE (NEGATIVE); URINE UROBILINOGEN 0.2 E.U./dl
[2025-02-11 11:05] LABS: URINE BACTERIA 5872.6 uL (0.0-1933); URINE EPITHELIAL CELLS 146.1 uL (0.0-38.8); URINE RBC 77.7 uL (0.0-20.8); URINE WBC 26.1 uL (0.0-23.2)
[2025-02-11 11:17] LABS: URINE APPEARANCE CLEAR; URINE CAST 0.29 uL (0.0-1.40); URINE COLOR YELLOW
[2025-02-11 11:45] LABS: CALCIUM 8.8 mg/dL (8.5-10.1); CHOL HDL RATIO 3.4 (0-5.0); CREATININE SERUM 0.58 mg/dL (0.55-1.02); GFR 100.54; POTASSIUM 3.9 mEq/L (3.5-5.1); T4 TOTAL 10.47 UG/DL (4.8-13.9); TSH 1.72 uIU/mL (0.358-3.74)
== END 2025-02-11 14:31 | disposition home or self-care (01) ==
LOC: LAB 09:28
PROVIDERS: ATTEND Internal Medicine Cardiovascular Disease
DX: I10 Essential (primary) hypertension (principal); E11.9 Type 2 diabetes mellitus without complications; E03.9 Hypothyroidism, unspecified; E78.2 Mixed hyperlipidemia

== ENCOUNTER 2025-04-14 09:31 | Outpatient (CLI) | payer OTHER | END 2025-04-14 09:43 | disposition home or self-care (01) | LOC: TOM 09:31 | PROVIDERS: ATTEND Internal Medicine Pulmonary Disease | DX: R06.02 Shortness of breath (principal); Z87.891 Personal history of nicotine dependence ==

== ENCOUNTER 2025-05-13 09:24 | Outpatient (CLI) | payer OTHER ==
[2025-05-13 10:11] LABS: URINE APPEARANCE Clear; URINE BILIRRUBIN Negative (NEGATIVE); URINE BLOOD Negative; URINE COLOR Yellow; URINE GLUCOSE Negative (NEGATIVE); URINE KETONE Negative (NEGATIVE); URINE LEUKOCYTE Trace; URINE NITRATE Negative; URINE PROTEIN Negative (NEGATIVE); URINE UROBILINOGEN 0.2 E.U./dl
[2025-05-13 10:15] LABS: URINE BACTERIA 1379.8 uL (0.0-1933); URINE EPITHELIAL CELLS 52.2 uL (0.0-38.8); URINE RBC 17.3 uL (0.0-20.8); URINE WBC 13.3 uL (0.0-23.2)
[2025-05-13 10:21] LABS: BASO % 0.5 % (0.1-1.2); EOS # 0.09 (0.04-0.54); EOS % 1.6 % (0.7-7.0); LYMPH # 1.24 (1.18-3.74); LYMPH % 22.6 % (19.3-53.1); MEAN PLATELET VOLUME 10.40 fl (9.4-12.4); MONO # 0.56 (0.24-0.82); MONO % 10.2 % (4.7-12.5); NEUT # 3.56 (1.56-6.13); NEUT % 64.9 % (34.0-71.1); RED CELL DISTRIBUTION WIDTH 13.4 % (11.6-14.4)
[2025-05-13 11:23] LABS: BUN CREA RATIO 33.0 (7.0-25.0); CHOL HDL RATIO 3.4 (0-5.0); CREATININE SERUM 0.55 mg/dL (0.55-1.02); GFR 106.9; GLUCOSE FASTING 99.0 mg/dL (65-100); HDL 53.0 mg/dl (40-60); LDL 100.0 mg/dl (0-130); OSMOLALITY SERUM 289.0 MOSM/KG (275-295); T4 TOTAL 9.41 UG/DL (4.8-13.9); TSH 1.56 uIU/mL (0.358-3.74); VLDL 26.0 (0-39)
[2025-05-13 11:58] LABS: URINE CAST 0.00 uL (0.0-1.40)
== END 2025-05-13 09:45 | disposition home or self-care (01) ==
LOC: LAB 09:24
PROVIDERS: ATTEND Internal Medicine Cardiovascular Disease
DX: I10 Essential (primary) hypertension (principal); E11.9 Type 2 diabetes mellitus without complications; E03.9 Hypothyroidism, unspecified; E78.2 Mixed hyperlipidemia

== ENCOUNTER → 2025-05-21 07:16 | Outpatient (CLI) | payer OTHER | END | disposition home or self-care (01) | LOC: NUCLEAR 07:16 | PROVIDERS: ATTEND Internal Medicine Pulmonary Disease | DX: R91.1 Solitary pulmonary nodule (principal); J43.2 Centrilobular emphysema | CPT/HCPCS: 78816; A9552 ==

== ENCOUNTER → 2025-08-05 11:36 | Outpatient (CLI) | payer OTHER ==
[2025-08-05 13:03] LABS: URINE APPEARANCE Clear; URINE BACTERIA 118.7 uL (0.0-1933); URINE BILIRRUBIN Negative (NEGATIVE); URINE BLOOD Negative; URINE CAST 0.00 uL (0.0-1.40); URINE COLOR Yellow; URINE EPITHELIAL CELLS 13.6 uL (0.0-38.8); URINE GLUCOSE Negative (NEGATIVE); URINE KETONE Negative (NEGATIVE); URINE LEUKOCYTE Negative; URINE NITRATE Negative; URINE PROTEIN Negative (NEGATIVE); URINE RBC 6.8 uL (0.0-20.8); URINE UROBILINOGEN 0.2 E.U./dl; URINE WBC 7.5 uL (0.0-23.2)
[2025-08-05 13:09] LABS: BUN CREA RATIO 28.0 (7.0-25.0); CHOL HDL RATIO 2.9 (0-5.0); CREATININE SERUM 0.61 mg/dL (0.55-1.02); GFR 94.61; GLUCOSE FASTING 90.0 mg/dL (65-100); HDL 54.0 mg/dl (40-60); LDL 80.0 mg/dl (0-130); OSMOLALITY SERUM 288.0 MOSM/KG (275-295); VLDL 22.0 (0-39)
[2025-08-05 13:30] LABS: BASO % 0.5 % (0.1-1.2); EOS # 0.10 (0.04-0.54); EOS % 1.8 % (0.7-7.0); LYMPH # 1.06 (1.18-3.74); LYMPH % 18.9 % (19.3-53.1); MEAN PLATELET VOLUME 10.30 fl (9.4-12.4); MONO # 0.51 (0.24-0.82); MONO % 9.1 % (4.7-12.5); NEUT # 3.89 (1.56-6.13); NEUT % 69.5 % (34.0-71.1); RED CELL DISTRIBUTION WIDTH 13.2 % (11.6-14.4)
[2025-08-05 16:10] LABS: T4 TOTAL 7.46 UG/DL (4.8-13.9); TSH 2.42 uIU/mL (0.358-3.74)
== END | disposition home or self-care (01) ==
LOC: LAB 11:36
PROVIDERS: ATTEND Internal Medicine Cardiovascular Disease
DX: E03.9 Hypothyroidism, unspecified (principal); I10 Essential (primary) hypertension; E78.2 Mixed hyperlipidemia; R73.03 Prediabetes

== ENCOUNTER 2025-08-08 09:05 | Outpatient (CLI) | payer OTHER | END 2025-08-08 09:07 | disposition home or self-care (01) | LOC: SONOGRAMA 09:05 | PROVIDERS: ATTEND Internal Medicine | DX: E03.9 Hypothyroidism, unspecified (principal); E04.1 Nontoxic single thyroid nodule; E04.2 Nontoxic multinodular goiter ==

== ENCOUNTER 2025-08-11 08:22 | Outpatient (CLI) | payer OTHER | END 2025-08-11 08:26 | disposition home or self-care (01) | LOC: TOM 08:22 | PROVIDERS: ATTEND Internal Medicine Cardiovascular Disease | DX: R51.9 Headache, unspecified (principal) ==

== ENCOUNTER → 2025-08-12 13:49 | Outpatient (CLI) | payer OTHER ==
[2025-08-12 14:27] LABS: BASO % 0.4 % (0.1-1.2); EOS # 0.13 (0.04-0.54); EOS % 1.8 % (0.7-7.0); LYMPH # 1.29 (1.18-3.74); LYMPH % 17.8 % (19.3-53.1); MEAN PLATELET VOLUME 9.80 fl (9.4-12.4); MONO # 0.71 (0.24-0.82); MONO % 9.8 % (4.7-12.5); NEUT # 5.07 (1.56-6.13); NEUT % 70.1 % (34.0-71.1); RED CELL DISTRIBUTION WIDTH 13.0 % (11.6-14.4)
[2025-08-12 14:35] LABS: COVID-19 AG NEGATIVE (NEGATIVE)
[2025-08-12 14:54] LABS: MYCOPLASMA PNEUMONIAE IGM NON REACTIVE (NO REACTIVE)
== END | disposition home or self-care (01) ==
LOC: LAB 13:49
DX: R05.9 Cough, unspecified (principal); R50.9 Fever, unspecified

== ENCOUNTER 2025-10-13 08:56 | Outpatient (CLI) | payer OTHER | END 2025-10-13 09:02 | disposition home or self-care (01) | LOC: TOM 08:56 | PROVIDERS: ATTEND Internal Medicine Pulmonary Disease | DX: R91.1 Solitary pulmonary nodule (principal) ==

== ENCOUNTER 2025-10-20 09:22 | Outpatient (CLI) | payer OTHER | END 2025-10-20 09:24 | disposition home or self-care (01) | LOC: SONOGRAMA 09:22 | PROVIDERS: ATTEND Pathology Anatomic Pathology | DX: E04.2 Nontoxic multinodular goiter (principal) ==